=== PATIENT | female | born 1965 | race Caucasian/White ===

== ENCOUNTER 2022-12-15 05:14 | Emergency (ER) | payer OTHER, MEDICAID, SELFPAY ==
[2022-12-15] VITALS (24 sets, daily range): BP systolic 66–139; BP diastolic 48–88; PULSE 65–101; RESP 14–28; TEMP 36.6–36.9; O2SAT 98–100
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
[2022-12-15] MEDS: ONDANSETRON 4 MG/2 ML INJ IV (06:17)
[2022-12-15] MEDS: HYDROMORPHONE 0.5 MG INJ IV ×2 (06:17→10:18)
[2022-12-15 06:18] LABS: Prothrombin Time 11.8 SECONDS (10.1-12.7)
[2022-12-15 06:21] LABS: PTT Partial Thromboplastin Tim 29 SECONDS (26-36)
[2022-12-15 06:23] LABS: Alanine Aminotransferase 22 IU/L (<35); Albumin 4.2 g/dL (3.5-5.0); Albumin Globulin Ratio 1.4 (1.0-2.8); Alkaline Phosphatase 92 U/L (38-126); Aspartate Aminotransferase 34 IU/L (14-36); BUN Creatinine Ratio 15.8 (6-22); Bilirubin Total 0.6 mg/dL (0.2-1.3); Blood Urea Nitrogen 9 mg/dL (7-17); Calcium 8.7 mg/dL (8.4-10.2); Carbon Dioxide 28 mmol/L (22-32); Chloride 103 mmol/L (98-107); Estimated Glomerular Filt Rate > 60 mL/min (>60); Ethanol (ETOH) < 10 mg/dL; Glucose 126 mg/dL (70-100); HEMOLYSIS < 15 (0-50); Lipase 201 U/L (23-300); Potassium 3.4 mmol/L (3.4-5.1); Sodium 140 mmol/L (137-145); Total Protein 7.2 g/dL (6.3-8.2)
[2022-12-15 06:24] LABS: Lactate (Lactic Acid) 2.1 mmol/L (0.7-2.1)
[2022-12-15 06:32] LABS: Add Manual Diff / Slide Review NO; Basophils Absolute Auto 0 /uL (0-100); Basophils Percent Auto 0.4 % (0-2); Eosinophils Absolute Auto 100 /uL (0-450); Eosinophils Percent Auto 0.6 % (2-4); Hematocrit 37.8 % (36-46); Hemoglobin 12.6 g/dL (12.0-16.0); Lymphocytes Absolute Auto 2300 /uL (1100-4500); Lymphocytes Percent Auto 23.7 % (25-40); Mean Corpuscular HGB Conc 33.4 % (30-36); Mean Corpuscular Hemoglobin 28.7 PG (26-34); Mean Corpuscular Volume 85.8 fL (80-100); Monocytes Absolute Auto 600 /uL (0-900); Monocytes Percent Auto 5.6 % (3-14); Neutrophils Absolute Auto 6800 /uL (1500-7000); Neutrophils Percent Auto 69.7 % (50-75); Platelet Count 246 X10^3/uL (150-400); Red Cell Distribution Width 14.1 % (11.6-14.8); White Blood Cell Count 9.8 X10^3/uL (4.5-11.0)
[2022-12-15 06:56] LABS: UR Morphine/Opiate cutoff 300 Positive (Negative); Ur Creatinine Normal (Normal); Ur Specific Gravity Normal (Normal); Urine Amphetamines Negative (Negative); Urine Barbiturates Negative (Negative); Urine Benzodiazepines Negative (Negative); Urine Cocaine Negative (Negative); Urine MDMA Negative (Negative); Urine Methadone Negative (Negative); Urine Methamphetamines Negative (Negative); Urine Oxycodone Negative (Negative); Urine Phencyclidine Negative (Negative); Urine Tetrahydrocannabinol Negative (Negative); Urine Tricyclic Antidepressant Negative (Negative); Urine pH M (Normal)
[2022-12-15] MEDS: HYDROMORPHONE 1 MG INJ IV (06:57)
[2022-12-15] MEDS: SODIUM CHLORIDE 0.9% 1,000 ML 1000 ML IV (08:05)
[2022-12-15 08:06] LABS: Reflexed Lactate in 2 Hours Y
[2022-12-15] MEDS: TRANEXAMIC ACID 1,000 MG in SODIUM CHLORIDE 0.9% 100 ML 200 MG IV (08:20)
[2022-12-15] MEDS: LIDOCAINE 1% W/EPI 20 ML INJ (08:24)
[2022-12-15 08:33] LABS: Lactate 2HR (Lactic Acid Rflx) 1.6 mmol/L (0.7-2.1)
[2022-12-15 08:35] LABS: Add Manual Diff / Slide Review NO; Basophils Absolute Auto 100 /uL (0-100); Basophils Percent Auto 0.5 % (0-2); Eosinophils Absolute Auto 0 /uL (0-450); Eosinophils Percent Auto 0.1 % (2-4); Hematocrit 34.8 % (36-46); Hemoglobin 11.4 g/dL (12.0-16.0); Lymphocytes Absolute Auto 1200 /uL (1100-4500); Lymphocytes Percent Auto 11.1 % (25-40); Mean Corpuscular HGB Conc 32.8 % (30-36); Mean Corpuscular Hemoglobin 28.4 PG (26-34); Mean Corpuscular Volume 86.8 fL (80-100); Monocytes Absolute Auto 700 /uL (0-900); Monocytes Percent Auto 5.9 % (3-14); Neutrophils Absolute Auto 9100 /uL (1500-7000); Neutrophils Percent Auto 82.4 % (50-75); Platelet Count 254 X10^3/uL (150-400); Red Blood Cell Count 4.01 X10^6/uL (4.0-5.2); Red Cell Distribution Width 13.7 % (11.6-14.8)
--- NOTE | 2022-12-15 09:46 | PC.NURSE ---
inocente wraps applied to abdomen to create binder/pressure to hematoma site with rn applying manual pressure.
[2022-12-15 09:55] LABS: COVID19 -Nasal RAPID Negative (Negative)
--- NOTE | 2022-12-15 10:21 | PC.NURSE ---
blood transfusion transferred to [facility] rns to complete
== END 2022-12-15 10:23 | disposition short-term general hospital (02) ==
PROVIDERS: Emergency Medicine; Emergency Provider Emergency Medicine
DX: T79.4XXA Traumatic shock, initial encounter (principal); R23.3 Spontaneous ecchymoses; I95.9 Hypotension, unspecified; S30.1XXA Contusion of abdominal wall, initial encounter; V89.2XXA Person injured in unspecified motor-vehicle accident, traffic, initial encounter
CPT/HCPCS: 36415; 36430; 70450; 71260; 72125; 74177; 80053; 80305; 80320; 82962; 83605; 83690; 85025; 85610; 85730; 86850; 86900; 86901; 87635; 93005; 96365; 96366; 96375; 96376; 99285; 99291; C9803; P9016; G0390; J1170; J2405; Q9967

== ENCOUNTER 2023-11-20 13:10 | Observation (INO) | payer OTHER, MEDICAID, SELFPAY ==
[2023-11-20] VITALS (11 sets, daily range): BP systolic 98–141; BP diastolic 60–84; PULSE 65–82; RESP 16–24; TEMP 36.2–36.7; O2SAT 96–100; BMI 29.2; BMI 26.0
--- NOTE | 2023-11-20 13:17 | DI.RAD.S_ITS ---
PROCEDURE: XR CHEST 1V INDICATIONS: chest pain TECHNIQUE: One view of the chest was acquired. COMPARISON: [facility], CT, CT CHEST ABD PEL W CON, 12/15/2022, 5:51. FINDINGS: Surgical changes and devices: None. Lungs and pleura: Lungs are clear. No pleural effusions or pneumothorax. Mediastinum: Mediastinal contours appear normal. Heart size is normal. Bones and chest wall: No suspicious bony lesions. Overlying soft tissues appear unremarkable. IMPRESSION: No acute pulmonary process. Dictated by: Sienna Rascon M.D. on 11/20/2023 at 15:38 Approved by: Sienna Rascon M.D. on 11/20/2023 at 15:38
[2023-11-20] MEDS: ASPIRIN 81 MG CHEW TAB 324 MG PO (13:25)
[2023-11-20 13:38] LABS: Add Manual Diff / Slide Review NO; Basophils Absolute Auto 100 /uL (0-100); Basophils Percent Auto 1.1 % (0-2); Eosinophils Absolute Auto 100 /uL (0-450); Eosinophils Percent Auto 1.2 % (2-4); Hematocrit 38.9 % (36-46); Hemoglobin 12.9 g/dL (12.0-16.0); Lymphocytes Absolute Auto 2200 /uL (1100-4500); Lymphocytes Percent Auto 41.1 % (25-40); Mean Corpuscular HGB Conc 33.2 % (30-36); Mean Corpuscular Hemoglobin 28.9 PG (26-34); Monocytes Absolute Auto 400 /uL (0-900); Monocytes Percent Auto 6.9 % (3-14); Neutrophils Absolute Auto 2700 /uL (1500-7000); Neutrophils Percent Auto 49.7 % (50-75); Platelet Count 262 X10^3/uL (150-400); Red Blood Cell Count 4.47 X10^6/uL (4.0-5.2); Red Cell Distribution Width 13.6 % (11.6-14.8); White Blood Cell Count 5.4 X10^3/uL (4.5-11.0)
[2023-11-20 13:42] LABS: Prothrombin Time 11.2 SECONDS (9.4-12.5)
[2023-11-20 13:45] LABS: PTT Partial Thromboplastin Tim 38 SECONDS (25.1-36.5)
[2023-11-20 13:46] LABS: Alanine Aminotransferase 16 IU/L (<35); Albumin 4.4 g/dL (3.5-5.0); Albumin Globulin Ratio 1.4 (1.0-2.8); Alkaline Phosphatase 79 U/L (38-126); Aspartate Aminotransferase 27 IU/L (14-36); Bilirubin Total 0.8 mg/dL (0.2-1.3); Blood Urea Nitrogen 14 mg/dL (7-17); Calcium 9.4 mg/dL (8.4-10.2); Carbon Dioxide 28 mmol/L (22-32); Chloride 106 mmol/L (98-107); Creatine Kinase 62 U/L (30-135); Estimated Glomerular Filt Rate > 60 mL/min (>60); Globulin 3.1 g/dL (1.7-4.1); Glucose 88 mg/dL (70-100); HEMOLYSIS < 15 (0-50); Lipase 222 U/L (23-300); Magnesium 2.2 mg/dL (1.6-2.3); Potassium 3.2 mmol/L (3.4-5.1); Sodium 142 mmol/L (137-145); Total Protein 7.5 g/dL (6.3-8.2)
--- NOTE | 2023-11-20 13:47 | ED_ITS ---
HPI - Chest Pain General Chief Complaint: Chest Pain Stated Complaint: pain under L breast into jaw/ t-0 Time Seen by Provider: 11/20/23 13:35 History of Present Illness HPI narrative: Patient here for non reproducible chest pain events starting yesterday. Yesterday had a 1 or 2 minute episode of left chest pain that radiated to the left neck.. Today at 1:00 p.m. had 2 more episodes. With these, no shortness of breath nausea sweating or syncope. Is a sharp pain pressure pain. No history of hypertension hypercholesterolemia. History of father though with coronary disease. Patient does not smoke. Never had cardiac stress test. No history of blood clots in legs or lungs before. No history of heart attack strokes or diabetes. Patient is pain-free at this time Related Data Home Medications Medication Instructions Recorded Confirmed bupropion HCl 150 mg tablet,12 hr 150 mg PO BID 11/20/23 11/20/23 sustained-release (Wellbutrin SR) Allergies Allergy/AdvReac Type Severity Reaction Status Date / Time No Known Drug Allergies Allergy Verified 11/20/23 13:17 Review of Systems Review of Systems Narrative: GENERAL: negative chills, fatigue, malaise, fever, sweats. HEENT: negative sinus pain, ear pain, sore throat RESPIRATORY: negative dyspnea, cough CARDIOVASCULAR: Positive chest pain, negative palpitations GASTROINTESTINAL: negative nausea, vomiting, abdominal pain : negative dysuria, frequency, hematuria MUSCULOSKELETAL: negative muscle or bony pain SKIN: negative rash, skin lesions NEUROLOGIC: negative weakness, numbness ROS Unobtainable: All systems reviewed & are unremarkable except as noted in HPI and below Patient History Social History household members: significant other Smoking Status: Never smoker alcohol intake: current Smoking Status: Never smoker alcohol intake frequency: 0-2 drinks per day Substance Use Type: does not use Exam Narrative Exam Narrative: GENERAL: in no distress, not toxic not dyspneic HEAD: Normocephalic. EYES: Pupils equal round ENT: Mucous membranes moist. NECK: Trachea midline. CARDIOVASCULAR: Regular rate and rhythm, strong heart tones strong carotid radial pulses. Chest wall nontender RESPIRATORY: Clear to auscultation. Breath sounds equal bilaterally. No wheezes, rales, or rhonchi. GASTROINTESTINAL: Abdomen soft, non-tender EXTREMITIES: No gross deformities. BACK: No flank tenderness. NEURO: AOx4. SKIN: Warm and dry PSYCH: Not anxious, is cooperative Initial Vital Signs Initial Vital Signs: Vital Signs Temperature 98.1 F 11/20/23 13:13 Pulse Rate 77 11/20/23 13:13 Respiratory Rate 18 11/20/23 13:13 Blood Pressure 136/74 11/20/23 13:13 Pulse Oximetry 98 11/20/23 13:13 Oxygen Delivery Method Room Air 11/20/23 13:13 Course Orders Ordered: Discontinued Medications Acetaminophen (Acetaminophen 325 Mg Tablet) 650 mg PO Q6H PRN PRN Reason: Fever/Mild Pain (1-3) Aspirin (Aspirin 81 Mg Chew Tab) 324 mg PO NOW ONE Stop: 11/20/23 13:18 Last Admin: 11/20/23 13:25 Dose: 324 mg Documented By: LINK Aspirin (Aspirin Ec 81 Mg Tablet) 81 mg PO DAILY [facility], [facility]1983 Last Admin: 11/21/23 08:09 Dose: 81 mg Documented By: MICAH Al Hydrox/Mg Hydrox/Simethicone 20 ml/ Lidocaine HCl 15 ml 0 ml PO Q8H PRN PRN Reason: GI upset/chest pain Melatonin (Melatonin 3 Mg Tablet) 6 mg PO BEDTIME PRN PRN Reason: Insomnia Naloxone HCl (Naloxone 0.4 Mg/Ml Vial) 0.2 mg IV Q2MIN PRN PRN Reason: Opiate Reversal Ondansetron HCl (Ondansetron 4 Mg/2 Ml Inj) 4 mg IV Q4HR PRN PRN Reason: Nausea And Vomiting Pantoprazole Sodium (Pantoprazole Dr 20 Mg Tablet) 40 mg PO 0700 [facility] Last Admin: 11/21/23 08:09 Dose: 40 mg Documented By: MICAH Potassium Chloride (Potassium Chloride 20 Meq Tab) 40 meq PO NOW ONE Stop: 11/20/23 16:43 Last Admin: 11/20/23 17:40 Dose: 40 meq Documented By: MICAH Vital Signs Vital signs: Vital Signs - 8 hr 11/20/23 13:13 11/20/23 13:24 11/20/23 13:24 Temperature 98.1 F Pulse Rate 77 74 Respiratory Rate 18 20 Blood Pressure 136/74 132/83 Pulse Oximetry 98 Oxygen Delivery Method Room Air 11/20/23 13:30 11/20/23 13:30 11/20/23 14:00 Temperature Pulse Rate 82 72 Respiratory Rate 17 22 Blood Pressure 134/84 Pulse Oximetry 99 98 Oxygen Delivery Method 11/20/23 14:00 11/20/23 14:30 11/20/23 14:30 Temperature Pulse Rate 70 Respiratory Rate 20 Blood Pressure 113/70 98/60 Pulse Oximetry 97 Oxygen Delivery Method 11/20/23 15:07 11/20/23 15:07 Temperature Pulse Rate 77 Respiratory Rate 24 Blood Pressure 116/66 Pulse Oximetry 98 Oxygen Delivery Method MDM - Chest Pain Lab Data 11/21/23 04:31 11/21/23 04:31 Labs: Lab Results 11/20/23 11/20/23 Range/Units 13:26 15:44 WBC 5.4 (4.5-11.0) X10^3/uL RBC 4.47 (4.0-5.2) X10^6/uL Hgb 12.9 (12.0-16.0) g/dL Hct 38.9 (36-46) % MCV 87.0 (80-100) fL MCH 28.9 (26-34) PG MCHC 33.2 (30-36) % RDW 13.6 (11.6-14.8) % Plt Count 262 (150-400) X10^3/uL Neut % (Auto) 49.7 L (50-75) % Lymph % (Auto) 41.1 H (25-40) % Starke % (Auto) 6.9 (3-14) % Eos % (Auto) 1.2 L (2-4) % Baso % (Auto) 1.1 (0-2) % Neut # (Auto) 2700 (0711-4807) /uL Lymph # (Auto) 2200 (4535-2914) /uL Starke # (Auto) 400 (0-900) /uL Eos # (Auto) 100 (0-450) /uL Baso # (Auto) 100 (0-100) /uL PT 11.2 (9.4-12.5) SECONDS INR 1.0 (0.9-1.3) APTT 38 H (25.1-36.5) SECONDS Sodium 142 (137-145) mmol/L Potassium 3.2 L (3.4-5.1) mmol/L Chloride 106 (98-107) mmol/L Carbon Dioxide 28 (22-32) mmol/L BUN 14 (7-17) mg/dL Creatinine 0.61 (0.52-1.04) mg/dL Estimated GFR > 60 (>60) mL/min BUN/Creatinine Ratio 23.0 H (6-22) Glucose 88 (70-100) mg/dL Hemoglobin A1c 5.3 (4.0-6.0) % Calcium 9.4 (8.4-10.2) mg/dL Magnesium 2.2 (1.6-2.3) mg/dL Total Bilirubin 0.8 (0.2-1.3) mg/dL AST 27 (14-36) IU/L ALT 16 (<35) IU/L Alkaline Phosphatase 79 (38-126) U/L Total Creatine Kinase 62 56 (30-135) U/L Troponin I < 0.012 < 0.012 (0.01-0.034) ng/mL Total Protein 7.5 (6.3-8.2) g/dL Albumin 4.4 (3.5-5.0) g/dL Globulin 3.1 (1.7-4.1) g/dL Albumin/Globulin Ratio 1.4 (1.0-2.8) Triglycerides 91 (35-150) mg/dL Cholesterol 199 (140-199) mg/dL LDL Cholesterol, Calc 117 H (<100) mg/dL HDL Cholesterol 64 H (40-60) mg/dL Lipase 222 (23-300) U/L TSH 1.91 (0.47-4.68) uIU/mL Imaging Data Chest x-ray: Radiologist's Impression: [address] [address] XRay Report Signed Patient: Lizz Parra MR#: [id number] : 1965 Acct:[id number] Age/Sex: 58 / F Date of Service: 11/20/23 Loc: ED Accession Number: [id number] Procedure: XR chest 1V Ordering Provider: Jarret Limon MD PROCEDURE: XR CHEST 1V INDICATIONS: chest pain TECHNIQUE: One view of the chest was acquired. COMPARISON: [facility], CT, CT CHEST ABD PEL W CON, 12/15/2022, 5:51. FINDINGS: Surgical changes and devices: None. Lungs and pleura: Lungs are clear. No pleural effusions or pneumothorax. Mediastinum: Mediastinal contours appear normal. Heart size is normal. Bones and chest wall: No suspicious bony lesions. Overlying soft tissues appear unremarkable. IMPRESSION: No acute pulmonary process. Dictated by: Sienna Rascon M.D. on 11/20/2023 at 15:38 Approved by: Sienna Rascon M.D. on 11/20/2023 at 15:38 [facility] Narrative Medical decision making narrative: Patient here for non reproducible chest pain events starting yesterday. Yesterday had a 1 or 2 minute episode of left chest pain that radiated to the left neck.. Today at 1:00 p.m. had 2 more episodes. With these, no shortness of breath nausea sweating or syncope. Is a sharp pain pressure pain. No history of hypertension hypercholesterolemia. History of father though with coronary disease. Patient does not smoke. Never had cardiac stress test. No history of blood clots in legs or lungs before. No history of heart attack strokes or diabetes. Patient is pain-free at this time After history and exam CBC CMP troponin x2 EKG chest x-ray aspirin [facility] CC: Chest pain Complicating co-morbidities: None Data collected from: Patient Medical records reviewed: No previous visits here for this complaint Differential considered: Includes but not limited to STEMI non-STEMI angina pleurisy costochondritis pulmonary embolism Exam documented above, pertinent findings include: Nontender chest Lab Test results independently reviewed as above. Pertinent findings: WBC 5.4 hemoglobin 12.9 INR 1.0 sodium 142 potassium 3.2 GFR greater than 60 Troponin less than 0.012 x2 Independently reviewed EKG normal sinus rhythm normal EKG rate [address] elevation or depression Imaging studies independently reviewed: Chest x-ray no acute finding Consultations: 4:30 p.m.. Spoke with hospitalist, Dr. Campbell, he will see patient for admission Treatments: Aspirin Re-evaluations: Patient remains chest pain-free. Exam and laboratory studies are reassuring. Patient agrees for admission. Does not have primary care to follow up with. Discussion: Appropriate for admission for balance or workup for chest pain including stress test echocardiogram. Exam and laboratory studies reassuring during workup in the department. Diagnosis: Chest pain Discharge Plan Departure Patient Disposition: Admitted as Observation Clinical Impression: Chest pain Qualifiers: Chest pain type: unspecified Qualified Code(s): R07.9 - Chest pain, unspecified Admit Date/Time: 11/20/23 16:34 Admit Provider: Shravan Campbell
[2023-11-20 13:58] LABS: Troponin I < 0.012 ng/mL (0.01-0.034)
[2023-11-20 15:58] LABS: Creatine Kinase 56 U/L (30-135)
[2023-11-20 16:11] LABS: Troponin I < 0.012 ng/mL (0.01-0.034)
--- NOTE | 2023-11-20 16:43 | DI.ECHO.S_ITS ---
[facility]---------+ [facility] +---------+ : : [address] [address] : : : : [id number] : : : : Phone: [phone]+ Echocardiogram Report + + :Name: NAHEED WELLS Study Date: 11/20/2023 Height: 59 in : :[facility] ReadingLocation: Weight: 145 lb: : Gender: Female BSA: 1.6 m2 : :: 1965 Age: 58 yrs : :Reason For Study: CHEST PAIN : :Ordering Physician: MURIEL, : :TORRES Blancas Performed By: Johnathan Hewitt : :Referring: TORRES LLAMAS : + + Interpretation Summary 1) Normal left ventricular thickness, size, wall motion, and systolic function (EF 55-60%). 2) Normal right ventricular size and function. 3) No significant valvular abnormalities. 4) No prior Echo available for comparison. Procedure: A two-dimensional transthoracic echocardiogram with color flow and Doppler was performed. The study quality was technically adequate. There is no prior echocardiogram noted for this patient. The patient was in normal sinus rhythm during the exam. The heart rate ranged between 62-69 bpm during the study. Left Ventricle: The left ventricle is normal in size and wall thickness. The ejection fraction is estimated to be 55-60%. Left ventricular systolic function appears normal without focal wall motion abnormalities. Diastolic parameters suggest probable normal left ventricular diastolic function and normal filling pressures. Right Ventricle: The right ventricle is normal in size and function. Atria: The left atrial size is normal. Right atrial size is normal. Mitral Valve: The mitral valve is normal in structure and function. There is no mitral valve stenosis. There is mild mitral regurgitation. The mitral regurgitant jet is eccentrically directed. Aortic Valve: The aortic valve is trileaflet. There is no aortic valve stenosis. No aortic regurgitation is present. Tricuspid Valve: The tricuspid valve is normal in structure and function. There is no tricuspid stenosis. No tricuspid regurgitation. Pulmonary artery pressures cannot be estimated because of the lack of a measurable TR jet velocity. Pulmonic Valve: The pulmonic valve is not well visualized. There is no pulmonic valvular stenosis. There is no pulmonic valvular regurgitation. Great Vessels: The aortic root is normal size. The ascending aorta could not be visualized. The IVC is of normal diameter and collapses greater than 50% with a sniff. This suggests a low right atrial pressure of 3 mm Hg. Pericardium/ Pleura There is no pericardial effusion. There is no pleural effusion. MMode/2D Measurements & Calculations LVIDd: 3.9 cm LVOT diam: 2.0 cm LVIDs: 2.8 cm Ao root diam: 3.0 cm FS: 28.8 % Ao Arch Diam (Prox Trans): 2.3 cm IVSd: 0.93 cm LVPWd: 1.0 cm LV maria. diameter/BSA (cm/m^2): 2.4 LV sys. diameter/BSA (cm/m^2): 1.7 LA A2 area: 14.6 cm2 RA long axis: 3.9 cm LA A4 area: 13.7 cm2 RA area: 13.1 cm2 LA length (vol): 4.5 cm RA vol: 37.0 ml LA vol: 37.7 ml RA : 23.0 ml/m2 LA vol index: 23.4 ml/m2 IVC diam: 1.8 cm RVD1 (basal): 4.1 cm RVD2 (mid): 2.9 cm TAPSE: 2.2 cm Doppler Measurements & Calculations Ao V2 max: 124.8 cm/sec LVOT Max Bernard: 107.9 cm/sec Ao V2 mean: 88.7 cm/sec LV V1 max P.7 mmHg Ao max P.2 mmHg LV V1 VTI: 25.1 cm Ao mean P.5 mmHg LITA(I,D): 2.5 cm2 Ao V2 VTI: 29.7 cm LITA(V,D): 2.6 cm2 sev ratio: 0.84 LITA indexed to BSA (cm^2/m^2): 1.6 MV E max bernard: 59.3 cm/sec PA V2 max: 72.7 cm/sec MV A max bernard: 63.0 cm/sec PA V2 mean: 47.9 cm/sec MV E/A: 0.94 PA mean P.0 mmHg Med Peak E' Bernard: 6.7 cm/sec PA pr(Accel): 24.2 mmHg E/E' med: 8.9 Lat Peak E' Bernard: 11.2 cm/sec E/E' lat: 5.3 E/e' average: 7.1 MV dec time: 0.18 sec SV(LVOT): 75.5 ml Reading Physician:08:49 AM
--- NOTE | 2023-11-20 16:49 | P.HP_ITS ---
History of Present Illness History of Present Illness Date Patient Seen: 11/20/23 Chief complaint: pain under L breast into jaw/ t-0 Narrative: Lizz Parra is a 58yo F with no significant past medical history who presents with chest pain. She notes it first occurred last week when she was working on her computer, she felt a pressure in her chest which radiated to her jaw and she was going to call 911 because it scared her, but then it went away so she didn't. Then today while driving she experienced the same pain under her left breast radiated to her left jaw. She pulled over the car and it lasted for about a minute then went away. Then it happened a third time so she drove herself to the ED. In the ED patient had a normal EKG and normal trops x2. She isn't sure if it is stress-related or heartburn. Has never had a stress test before. She denies dyaphoresis, NV, dizziness, SOB, abd pain or diarrhea. [facility] Social History household members: significant other Smoking Status: Never smoker alcohol intake: current Meds Home Medications and Allergies Home Medications Medication Instructions Recorded Confirmed Type bupropion HCl 150 mg tablet,12 hr 150 mg PO BID 11/20/23 11/20/23 History sustained-release (Wellbutrin SR) Allergies Allergy/AdvReac Type Severity Reaction Status Date / Time No Known Drug Allergies Allergy Verified 11/20/23 13:17 Review of Systems Review of Systems Narrative: All other systems reviewed with the patient and are negative unless otherwise stated. Exam Vital Signs (past 8 hours): - 11/20/23 13:13 11/20/23 13:24 11/20/23 13:24 Temperature 98.1 F Pulse Rate 77 74 Respiratory Rate 18 20 Blood Pressure 136/74 132/83 Pulse Oximetry 98 Oxygen Delivery Method Room Air 11/20/23 13:30 11/20/23 13:30 11/20/23 14:00 Temperature Pulse Rate 82 72 Respiratory Rate 17 22 Blood Pressure 134/84 Pulse Oximetry 99 98 Oxygen Delivery Method 11/20/23 14:00 11/20/23 14:30 11/20/23 14:30 Temperature Pulse Rate 70 Respiratory Rate 20 Blood Pressure 113/70 98/60 Pulse Oximetry 97 Oxygen Delivery Method 11/20/23 15:07 11/20/23 15:07 11/20/23 15:30 Temperature Pulse Rate 77 67 Respiratory Rate 24 18 Blood Pressure 116/66 Pulse Oximetry 98 98 Oxygen Delivery Method 11/20/23 15:30 11/20/23 16:00 11/20/23 16:00 Temperature Pulse Rate 65 Respiratory Rate 22 Blood Pressure 110/70 107/65 Pulse Oximetry 96 Oxygen Delivery Method 11/20/23 16:30 11/20/23 16:30 Temperature Pulse Rate 65 Respiratory Rate 19 Blood Pressure 103/69 Pulse Oximetry 97 Oxygen Delivery Method Oxygen Delivery Method Room Air Narrative Exam Narrative: GEN: no acute distress HEENT: moist mucous membranes, PERRL NECK: trachea midline, no JVD CV: regular rate and rhythm, no murmurs PULM: clear bilaterally ABD: soft, nontender, nondistended, no organomegaly EXT: warm and well perfused with no edema NEURO: awake, alert, oriented, no focal deficits Objective Labs 11/20/23 13:26 11/20/23 13:26 Labs: Laboratory Results - last 24 hr 11/20/23 11/20/23 13:26 15:44 WBC 5.4 RBC 4.47 Hgb 12.9 Hct 38.9 MCV 87.0 MCH 28.9 MCHC 33.2 RDW 13.6 Plt Count 262 Neut % (Auto) 49.7 L Lymph % (Auto) 41.1 H [place] % (Auto) 6.9 Eos % (Auto) 1.2 L Baso % (Auto) 1.1 Neut # (Auto) 2700 Lymph # (Auto) 2200 [place] # (Auto) 400 Eos # (Auto) 100 Baso # (Auto) 100 PT 11.2 INR 1.0 APTT 38 H Sodium 142 Potassium 3.2 L Chloride 106 Carbon Dioxide 28 BUN 14 Creatinine 0.61 Estimated GFR > 60 BUN/Creatinine Ratio 23.0 H Glucose 88 Calcium 9.4 Magnesium 2.2 Total Bilirubin 0.8 AST 27 ALT 16 Alkaline Phosphatase 79 Total Creatine Kinase 62 56 Troponin I < 0.012 < 0.012 Total Protein 7.5 Albumin 4.4 Globulin 3.1 Albumin/Globulin Ratio 1.4 Lipase 222 Assessment & Plan Assessment & Plan narrative: # chest pain -suspicious as it occured on left side and radiated to jaw and L arm. Also her father had cardiac disease. -heart score 3-4 -start daily aspirin, loaded in ED -treadmill stress test ordered -echo ordered -NPO midnight -no caffeine -tele -check lipids and A1c # hypokalemia -K 3.2, mag good -replete PRN Code status is full code. DVT prophylaxis with SCD. Proxy is life partner Peter. I have reviewed home meds and used all available resources to reconcile the home meds. Case discussed with ED physician/APC and patient will be admitted to the hospitalist service for further workup and management. This patient will be admitted as observation and will require less than 2 midnights of hospital time to treat chest pain rule out.
[2023-11-20 17:07] LABS: Cholesterol 199 mg/dL (140-199); HDL Cholesterol 64 mg/dL (40-60); LDL Cholesterol Calculated 117 mg/dL (<100); Triglycerides 91 mg/dL (35-150)
[2023-11-20 17:08] LABS: Hemoglobin A1C% w Est Avg Glu 5.3 % (4.0-6.0)
[2023-11-20 17:39] LABS: TSH w/ Reflex to FT4 1.91 uIU/mL (0.47-4.68)
[2023-11-20] MEDS: POTASSIUM CHLORIDE 20 MEQ TAB 40 MEQ PO (17:40)
[2023-11-21 04:45] VITALS: BP 102/72; PULSE 62; RESP 16; TEMP 35.8; O2SAT 100
[2023-11-21 05:16] LABS: Add Manual Diff / Slide Review NO; Basophils Absolute Auto 100 /uL (0-100); Basophils Percent Auto 1.2 % (0-2); Eosinophils Absolute Auto 100 /uL (0-450); Eosinophils Percent Auto 2.5 % (2-4); Hematocrit 36.6 % (36-46); Hemoglobin 12.3 g/dL (12.0-16.0); Lymphocytes Absolute Auto 2400 /uL (1100-4500); Lymphocytes Percent Auto 48.8 % (25-40); Mean Corpuscular HGB Conc 33.6 % (30-36); Mean Corpuscular Hemoglobin 29.1 PG (26-34); Mean Corpuscular Volume 86.6 fL (80-100); Monocytes Absolute Auto 300 /uL (0-900); Monocytes Percent Auto 6.5 % (3-14); Neutrophils Absolute Auto 2000 /uL (1500-7000); Platelet Count 244 X10^3/uL (150-400); Red Blood Cell Count 4.23 X10^6/uL (4.0-5.2); Red Cell Distribution Width 13.5 % (11.6-14.8)
[2023-11-21 05:37] LABS: Troponin I < 0.012 ng/mL (0.01-0.034)
[2023-11-21 05:39] LABS: BUN Creatinine Ratio 23.7 (6-22); Blood Urea Nitrogen 14 mg/dL (7-17); Calcium 9.3 mg/dL (8.4-10.2); Carbon Dioxide 25 mmol/L (22-32); Chloride 109 mmol/L (98-107); Estimated Glomerular Filt Rate > 60 mL/min (>60); Glucose 90 mg/dL (70-100); HEMOLYSIS < 15 (0-50); Potassium 4.7 mmol/L (3.4-5.1); Sodium 140 mmol/L (137-145)
[2023-11-21 08:00] VITALS: BP 95/59; PULSE 56; RESP 16; TEMP 36.3; O2SAT 100
[2023-11-21] MEDS: PANTOPRAZOLE DR 20 MG TABLET 40 MG PO (08:09)
[2023-11-21] MEDS: ASPIRIN EC 81 MG TABLET PO (08:09)
--- NOTE | 2023-11-21 10:37 | CM.DANOTE ---
Initial DCP Assessment Note Pt is a 58 yo female, resident of [place], arrives with transient chest pain, admitted for additional work up. PCP: None currently Payer: Gadiel [place] Reviewed chart, pt discussed in multidisciplinary rounds this morning. Patient scheduled for stress test then likely discharge home after. Met w/patient to introduce self and role. Patient moved to [place] from [place], with her SO, a few days ago. Patient is indp in all aspects, drives. Patient asks what providers in the area would accept Gadiel [place]. Patient had already called providers in [place] and [place] and did not have success. Reviewed Gadiel's website and found that provider groups: [facility] in [place] and [facility] in [place] accept Gadiel, provided patient with contact information for both. Patient appreciative. No barriers identified at this time to patient's safe discharge home w/family to assist; close outpatient f/u recommended. CM team will plan to follow closely in case any DC needs or concerns arise. HERMILA Rondon Discharge Planning/Care Management CM Discharge Assessment Start: 11/21/23 10:36 Freq: Status: Active Protocol: Document 11/21/23 10:36 BRII (Rec: 11/21/23 10:37 BRII [id number]) Discharge Planning Assessment Assigned Sliver Cutter HERMILA Castaneda DPOA/Assigned Designee Name ADDISON Lee Contact Information [phone] Advance Directives? No History Provided By Patient,Medical Record Prior Living Arrangements House Household Members significant other Type of transporation used prior to Drives own vehicle admit Independent with ADL's Yes Is patient alert and oriented? Yes Barriers to Discharge No Discharge Plan Home Transportation Arrangement SO Referrals Initiated None needed
[2023-11-21 13:00] VITALS: BP 104/62; PULSE 75; RESP 16; TEMP 36.3; O2SAT 96
--- NOTE | 2023-11-21 13:54 | PC.NURSE ---
Day shift: Pt's cardiac tests all came back without concern. PIV and tele d/c'ed. Discharge orders gone over with patient, all questions answered/patient stated understanding. All belongings with patient. SILAS Ruelas escorted patient via wheelchair to exit where patient's SO will drive her home.
--- NOTE | 2023-11-21 14:23 | P.DS_ITS ---
History of Present Illness History of Present Illness Chief complaint: pain under L breast into jaw/ t-0 Narrative: Lizz Parra is a 58yo F with no significant past medical history who presents with chest pain. She notes it first occurred last week when she was working on her computer, she felt a pressure in her chest which radiated to her jaw and she was going to call 911 because it scared her, but then it went away so she didn't. Then today while driving she experienced the same pain under her left breast radiated to her left jaw. She pulled over the car and it lasted for about a minute then went away. Then it happened a third time so she drove herself to the ED. In the ED patient had a normal EKG and normal trops x2. She isn't sure if it is stress-related or heartburn. Has never had a stress test before. She denies dyaphoresis, NV, dizziness, SOB, abd pain or diarrhea. Discharge Providers Provider Date of admission: 11/20/23 16:34 Discharge Date: 11/21/23 Discharge provider: Shravan Campbell DO Summary Hospital Course Discharge Diagnosis: # chest pain -suspicious as it occured on left side and radiated to jaw and L arm. Also her father had cardiac disease. -heart score 3-4 -trops neg x3 -start daily aspirin, loaded in ED -treadmill stress test was low risk -echo with EF 55-60%, normal wall motion, and no valvular abnormalities -tele -LDL 117 and A1c 5.3% # hypokalemia -K 3.2, mag good -replete PRN Hospital Course: Admitted for chest pain. Trops, EKG, echo and exercise non-nuclear stress test were reassuring. Patient needs new PCP so she was given list of providers to schedule with. Discharged home and had no further CP while admitted. Exam Vital Signs (past 8 hours): - 11/21/23 08:00 11/21/23 13:00 Temperature 97.4 F L 97.3 F L Pulse Rate 56 L 75 Respiratory Rate 16 16 Blood Pressure 95/59 L 104/62 Pulse Oximetry 100 96 Oxygen Flow Rate 0 Oxygen Delivery Method Room Air Oxygen Flow Rate 0 Narrative Exam Narrative: GEN: no acute distress HEENT: moist mucous membranes, PERRL NECK: trachea midline, no JVD CV: regular rate and rhythm, no murmurs PULM: clear bilaterally ABD: soft, nontender, nondistended, no organomegaly EXT: warm and well perfused with no edema NEURO: awake, alert, oriented, no focal deficits Objective Labs 11/21/23 04:31 11/21/23 04:31 Labs: Laboratory Results - last 24 hr 11/20/23 11/20/23 11/21/23 13:26 15:44 04:31 WBC 5.0 RBC 4.23 Hgb 12.3 Hct 36.6 MCV 86.6 MCH 29.1 MCHC 33.6 RDW 13.5 Plt Count 244 Neut % (Auto) 41.0 L Lymph % (Auto) 48.[address] [place] % (Auto) 6.5 Eos % (Auto) 2.5 Baso % (Auto) 1.2 Neut # (Auto) 2000 Lymph # (Auto) [address] [place] # (Auto) 300 Eos # (Auto) 100 Baso # (Auto) 100 Sodium 140 Potassium 4.7 D Chloride 109 H Carbon Dioxide 25 BUN 14 Creatinine 0.59 Estimated GFR > 60 BUN/Creatinine Ratio 23.7 H Glucose 90 Hemoglobin A1c 5.3 Calcium 9.3 Total Creatine Kinase 56 Troponin I < 0.012 < 0.012 Triglycerides 91 Cholesterol 199 LDL Cholesterol, Calc 117 H HDL Cholesterol 64 H TSH 1.91 PFSH Social History household members: significant other Smoking Status: Never smoker alcohol intake: current Discharge Plan Discharge Plan Patient Disposition: Home Provider Discharge Comment: All of your cardiac testing was reassuring including normal heart enzymes, normal EKG, normal echo and normal stress test. Your chest pain is likely non-cardiac. Discharge orders & Medications Prescriptions: Continued bupropion HCl [Wellbutrin SR] 150 mg Tablet Sustained-Release 12 Hr 150 mg PO BID Follow up/Referrals: Miscellaneous,DoctorMD [Non-Staff] - Visit Report/Discharge Packet Instructions: DI for Gastroesophageal Reflux Disease (GERD) Stand Alone Forms: Patient Portal/API, Stroke Signs & Symptoms Discharge Data Attending Provider: Shravan Campbell Admit Date/Time: 11/20/23 16:34 Quality VTE Deep Vein Thrombosis/Pulmonary Embolism Present on Admission: No
--- NOTE | 2023-11-21 15:01 | DI.NM.S_ITS ---
DATE OF SERVICE: 11/21/2023 STUDY: Exercise stress test INDICATIONS: Chest pain. CARDIAC STRESS: Patient underwent exercise stress test under the supervision of attending staff. The patient walked on [place] protocol for 9 minutes and 15 seconds, achieved maximum heart rate of 149, which was 91% of target heart rate. Normal blood pressure response. Resting blood pressure 110/70 and peak blood pressure 142/70 mmHg. SRINATH -28%. 10.1 METs of workload. Baseline rhythm, sinus. During stress, no convincing ischemic EKG changes seen. No significant arrhythmias. No chest pain. Normal recovery. The patient had some shortness of breath. CONCLUSION: 1. Exercise stress test is negative for inducible ischemia. 2. Normal blood pressure and heart rate response. 3. No significant arrhythmias. 4. No anginal symptoms with normal recovery. Good exercise capacity. Overall, low-risk exercise stress test. Lizz Parra - CAMILO/prabhu/sonya doc#: [id number]/job#: [id number] dd: 11/21/2023 12:47:00 dt: 11/21/2023 14:52:00 DICTATING /COPIES TO: Amauri Heredia MD COPIES MNE: BANDAR;
== END 2023-11-21 13:58 | disposition home or self-care (01) ==
LOC: ED 15:48 → AC 16:34
PROVIDERS: Admitting Provider Student in an Organized Health Care Education/Training Program; Emergency Provider Emergency Medicine; Referring Provider Emergency Medicine; Visit Provider Student in an Organized Health Care Education/Training Program
DX: R07.9 Chest pain, unspecified (principal); E87.6 Hypokalemia
CPT/HCPCS: 36415; 71045; 80048; 80053; 80061; 82550; 83036; 83690; 83735; 84443; 84484; 85025; 85610; 85730; 93005; 93010; 93017; 93306; 99284; G0378

== ENCOUNTER → 2024-01-13 09:49 | Outpatient (CLI) | payer OTHER, MEDICAID, SELFPAY ==
[2023-11-20 16:57] VITALS: BMI 26.0
--- NOTE | 2024-01-13 10:56 | DI.CT.S_ITS ---
PROCEDURE: CT ABDOMEN W CON INDICATIONS: Elevated lipase TECHNIQUE: After the administration of intravenous contrast, 5 mm thick sections acquired from the diaphragms to the iliac crests. 5 mm thick coronal and sagittal reformats were acquired. For radiation dose reduction, the following was used: automated exposure control, adjustment of mA and/or kV according to patient size. COMPARISON: None. FINDINGS: Image quality: Diagnostic. Lower Chest: No significant findings. ABDOMEN: Liver: No solid mass. Gallbladder: Absent. Biliary ducts: No biliary dilation. Pancreas: No ductal dilation. No peripancreatic fat stranding. Spleen: Size is within normal limits. Adrenal Glands: No adrenal nodules. Kidneys and Ureters: No hydronephrosis. No solid mass. No complex renal cystic lesion which requires follow up. Stomach and Bowel: Normal colonic caliber, without significant wall thickening. Peritoneum: No abnormal intraperitoneal fluid. No free air. Ventral Wall: No hernia. Abdominal Nodes: No retroperitoneal or mesenteric adenopathy by size criteria. Vessels: Aorta and inferior vena cava are normal in size. Bones: No aggressive osseous abnormality. IMPRESSION: Normal CT appearance of the pancreas. No CT evidence pancreatitis. Dictated by: Clovis Ma M.D. on 01/13/2024 at 13:22 Approved by: Clovis Ma M.D. on 01/13/2024 at 13:25
== END ==
LOC: CT 09:49
PROVIDERS: PCP Registered Nurse; Referring Provider Registered Nurse; Visit Provider Registered Nurse
DX: R74.8 Abnormal levels of other serum enzymes (principal)
CPT/HCPCS: 74160; Q9967

== ENCOUNTER 2024-04-22 13:28 | Day surgery (SDC) | payer OTHER, MEDICAID, SELFPAY ==
[2023-11-20 16:57] VITALS: BMI 26.0
[2024-04-22 14:07] VITALS: BP 106/66; PULSE 66; RESP 16; TEMP 37; O2SAT 99
[2024-04-22] MEDS: LACTATED RINGERS 1,000 ML 42 ML IV (14:11)
--- NOTE | 2024-04-22 14:13 | P.HP_ITS ---
History of Present Illness History of Present Illness Date Patient Seen: 04/22/24 Time Patient Seen: 14:13 Chief complaint: Screening Colonoscopy Narrative: Lizz is a 58-year-old woman who is here for colonoscopy. She had a colonoscopy many years ago with polyps removed. Her mother had colon cancer in her 70s. [facility] Surgical History (Updated 04/22/24 @ 13:57 by Janet Cano RN) Hx of cholecystectomy Social History household members: significant other Smoking Status: Never smoker alcohol intake: never Meds Home Medications and Allergies Home Medications Medication Instructions Recorded Confirmed Type bupropion HCl 150 mg tablet,12 hr 150 mg PO BID 11/20/23 04/22/24 History sustained-release (Wellbutrin SR) peg 3350-electrolytes 236 240 ml PO Q10M #4,000 mL 03/15/24 Rx gram-22.74 gram-6.74 gram-5.86 gram solution (Golytely) naltrexone 50 mg tablet 50 mg PO DAILY 04/22/24 04/22/24 History Allergies Allergy/AdvReac Type Severity Reaction Status Date / Time No Known Drug Allergies Allergy Verified 11/20/23 13:17 Exam Vital Signs (past 8 hours): - 04/22/24 14:07 Temperature 98.6 F Pulse Rate 66 Respiratory Rate 16 Blood Pressure 106/66 Pulse Oximetry 99 Oxygen Delivery Method Room Air Oxygen Delivery Method Room Air Const General: No acute distress Resp Effort & Inspection: normal respiratory effort Assessment & Plan Assessment and plan (1) History of colon polyps: Status: Acute Plan We reviewed the risks and benefits of colonoscopy and she would like to proceed Time-Based Coding :: [TOTAL MINUTES] spent with patient and on the chart (including review of chart, obtaining history, exam, reviewing outside data, placing orders, documenting exam and treatment plan, and counseling patient) on [DATE].
--- NOTE | 2024-04-22 14:48 | PM.OP.COLON ---
Operative Date/Time/Diagnoses Date of procedure: 04/22/24 Time of procedure: 14:48 Pre-op diagnosis: Personal history of colon polyps and family history of colon cancer Post-op diagnosis: same Procedure & Clinicians Study performed: Colonoscopy Surgeon: Scott Casiano Procedure Notes Procedure in detail: Surgeon: Scott Casiano MD Anesthesia: Unique Randhawa DO Procedure: The patient was brought to the endoscopy suite, placed in left lateral decubitus position. The patient was connected to monitoring devices. A time-out was performed. Sedation was administered. Once the patient was adequately sedated, a digital rectal exam was performed and was normal. The scope was then inserted and advanced to the cecum where the appendiceal orifice was identified and photographed. The scope was then slowly withdrawn over greater than 6 minutes. The mucosa was thoroughly inspected. No abnormalities were found. The scope was retroflexed in the rectum. No abnormalities were seen. The scope was straightened and removed. The patient was awakened and brought to recovery. Scope withdrawal time: 10 minutes Sedation time: 15 minutes EBL: 0 Findings: Normal colon Post-procedure Recommendations: Colonoscopy in 5 years Disposition: PACU
[2024-04-22 14:52] VITALS: BP 97/61; PULSE 69; RESP 19; TEMP 36.2; O2SAT 97
[2024-04-22 14:57] VITALS: BP 95/61; PULSE 67; RESP 18; O2SAT 97
[2024-04-22 15:01] VITALS: BP 97/65; PULSE 65; RESP 17; O2SAT 97
[2024-04-22 15:07] VITALS: BP 95/63; PULSE 64; RESP 17; O2SAT 97
[2024-04-22 15:11] VITALS: BP 99/60; PULSE 66; RESP 15; TEMP 36.7; O2SAT 97
== END 2024-04-22 15:30 | disposition home or self-care (01) ==
PROVIDERS: PCP Registered Nurse; Referring Provider Surgery; Visit Provider Surgery
PROC: 0DJD8ZZ Inspection of Lower Intestinal Tract, Via Natural or Artificial Opening Endoscopic (ICD-10-PCS; CPT 45378; principal; 2024-04-22 14:15)
DX: Z12.11 Encounter for screening for malignant neoplasm of colon (principal); Z86.010 Personal history of colon polyps; Z80.0 Family history of malignant neoplasm of digestive organs
CPT/HCPCS: 45378; J2704

== ENCOUNTER → 2024-11-09 12:33 | Outpatient (CLI) | payer OTHER, SELFPAY ==
[2023-11-20 16:57] VITALS: BMI 26.0
--- NOTE | 2024-11-09 12:36 | DI.RAD.S_ITS ---
PROCEDURE: XR CHEST 2V INDICATIONS: POS TB TEST TECHNIQUE: 2 views of the chest were acquired. COMPARISON: [facility], , XR CHEST 1V, 11/20/2023, 13:26. FINDINGS: Heart, mediastinum and pulmonary vascular: Heart is normal in size and configuration. Mediastinum is unremarkable. Pulmonary vascular is normal. Lungs: Clear Pleural spaces: Normal-no effusions or pneumothorax. Bones and soft tissues: Normal IMPRESSION: Normal chest. Dictated by: Delon Coronado M.D. on 11/10/2024 at 10:48 Approved by: Delon Coronado M.D. on 11/10/2024 at 10:48
== END ==
PROVIDERS: PCP Registered Nurse; Referring Provider Registered Nurse; Visit Provider Registered Nurse
DX: R76.12 Nonspecific reaction to cell mediated immunity measurement of gamma interferon antigen response without active tuberculosis (principal)
CPT/HCPCS: 71046

== ENCOUNTER 2024-11-22 08:58 | Emergency (ER) | payer OTHER, SELFPAY ==
[2023-11-20 16:57] VITALS: BMI 26.0
[2024-11-22 09:04] VITALS: BP 133/75; PULSE 81; RESP 18; TEMP 36.8; O2SAT 98; BMI 30.4
--- NOTE | 2024-11-22 09:09 | DI.RAD.S_ITS ---
PROCEDURE: XR ELBOW LT MIN 3V INDICATIONS: pain/swelling/ fall TECHNIQUE: 3 views of the elbow were acquired. COMPARISON: None. FINDINGS: Bones: No fractures or dislocations. No suspicious bony lesions. Soft tissues: Small-moderate elbow joint effusion. No suspicious soft tissue calcifications. IMPRESSION: Small-moderate elbow joint effusion without a radiographically evident fracture. If there is persistent concern, consider a CT of the elbow without contrast for confirmation. Dictated by: Paolo Louis M.D. on 11/22/2024 at 10:27 Approved by: Paolo Louis M.D. on 11/22/2024 at 10:29
--- NOTE | 2024-11-22 11:29 | ED_ITS ---
HPI - Fall <Lindy Watson PA-C - Last Filed: 11/22/24 12:53> General Chief Complaint: Fall Stated Complaint: fall, head/hip/L elbow injury & pain Time Seen by Provider: 11/22/24 11:28 Source: patient Mode of arrival: Ambulatory History of Present Illness HPI Narrative: 59-year-old female presents to the ED status post a mechanical fall sustained just prior to arrival. Patient states that she slipped on some ice, falling backwards. Patient did strike the backside of her head, did not lose consciousness. Patient is not on blood thinners. Patient states that she has some soreness in her lower back, however it is the left elbow that is the most painful. Patient states she is unable to move her elbow without pain. No numbness, tingling, weakness. Related Data Home Medications Medication Instructions Recorded Confirmed bupropion HCl 150 mg tablet,12 hr 150 mg PO BID 11/20/23 04/22/24 sustained-release (Wellbutrin SR) naltrexone 50 mg tablet 50 mg PO DAILY 04/22/24 04/22/24 Previous Rx's Medication Instructions Recorded oxycodone-acetaminophen 5 mg-325 1 tab PO Q6H PRN pain 3 days #10 11/22/24 mg tablet (Percocet) tabs Allergies Allergy/AdvReac Type Severity Reaction Status Date / Time No Known Drug Allergies Allergy Verified 11/20/23 13:17 Review of Systems <Lindy Watson PA-C - Last Filed: 11/22/24 12:53> Constitutional Constitutional: Denies chills, Denies fatigue, Denies fever(s), Denies frequent falls, Denies lethargy and Denies weakness Eyes Eyes: Denies change in vision, Denies eye discharge, Denies irritation and Denies loss of vision ENT Ears, Nose, Mouth, and Throat: Denies change in voice, Denies dizziness, Denies neck pain, Denies sore throat and Denies throat swelling Cardiovascular Cardiovascular: Denies chest pain, Denies irregular heart rhythm, Denies lightheadedness, Denies palpitations, Denies dyspnea, Denies dyspnea on exertion and Denies orthopnea Respiratory Respiratory: Denies cough, Denies dyspnea, Denies dyspnea on exertion and Denies wheezing Gastrointestinal Gastrointestinal: Denies abdominal pain, Denies change in bowel habits, Denies diarrhea, Denies nausea and Denies vomiting Musculoskeletal Musculoskeletal: Denies neck pain and Denies numbness Comments: L elbow swelling, pain. Lower back feels sore. Integumentary/Breasts Skin/Breast: Denies pruritus, Denies erythema, Denies rash and Denies wounds Neurologic Neurologic: Denies behavioral changes, Denies confusion, Denies dizziness, Denies frequent falls, Denies loss of vision, Denies numbness and Denies weakness Psychiatric Psychiatric: Denies anxiety, Denies behavioral changes, Denies confusion, Denies depression, Denies homicidal ideation and Denies suicidal ideation Endocrine Endocrine: Denies fatigue, Denies flushing and Denies palpitations Hematologic/Lymphatic Hematologic/Lymphatic: Denies easy bruising Allergic/Immunologic Allergic/Immunologic: Denies urticaria, Denies throat swelling and Denies wheezing Patient History <Lindy Watson PA-C - Last Filed: 11/22/24 12:53> Surgical History Hx of cholecystectomy Social History household members: significant other Smoking Status: Never smoker alcohol intake: never Smoking Status: Never smoker alcohol intake frequency: 0-2 drinks per day Exam <Lindy Watson PA-C - Last Filed: 11/22/24 12:53> Narrative Exam Narrative: Const General:?cooperative, healthy appearing and comfortable [facility] Head:?normal to inspection Ears:?hearing grossly normal bilaterally Nose:?external nose normal Face and sinus:?normal facial exam and sinuses nontender Mouth:?oral mucosae normal Throat:?posterior oropharynx normal Eyes General:?appearance normal, both eyes and all related structures Neck Neck:?normal visual inspection and no lymphadenopathy noted Resp Effort & Inspection:?normal respiratory effort Auscultation:?clear to auscultation bilaterally Cardio Rate:?regular rate Rhythm:?regular rhythm Musculoskeletal There is swelling, tenderness to palpation of the left elbow. Range of motion is limited by pain. Strength and sensation is intact. Neurovascularly intact. Neuro General:?patient alert, patient awake and patient oriented x3 Initial Vital Signs Initial Vital Signs: Vital Signs Temperature 98.2 F 11/22/24 09:04 Pulse Rate 81 11/22/24 09:04 Respiratory Rate 18 11/22/24 09:04 Blood Pressure 133/75 11/22/24 09:04 Pulse Oximetry 98 11/22/24 09:04 Oxygen Delivery Method Room Air 11/22/24 09:04 <Emile Guerin MD - Last Filed: 11/22/24 21:53> Initial Vital Signs Initial Vital Signs: Vital Signs Temperature 98.2 F 11/22/24 09:04 Pulse Rate 81 11/22/24 09:04 Respiratory Rate 18 11/22/24 09:04 Blood Pressure 133/75 11/22/24 09:04 Pulse Oximetry 98 11/22/24 09:04 Oxygen Delivery Method Room Air 11/22/24 09:04 Course <Lindy Watson PA-C - Last Filed: 11/22/24 12:53> Orders Ordered: Discontinued Medications Ibuprofen (Ibuprofen 400 Mg Tablet) 800 mg PO NOW ONE Stop: 11/22/24 11:34 Last Admin: 11/22/24 12:05 Dose: 800 mg Documented By: SPF Vital Signs Vital signs: Vital Signs - 8 hr 11/22/24 09:04 11/22/24 12:11 Temperature 98.2 F Pulse Rate 81 Respiratory Rate 18 14 Blood Pressure 133/75 Pulse Oximetry 98 Oxygen Delivery Method Room Air <Emile Guerin MD - Last Filed: 11/22/24 21:53> Orders Ordered: Discontinued Medications Ibuprofen (Ibuprofen 400 Mg Tablet) 800 mg PO NOW ONE Stop: 11/22/24 11:34 Last Admin: 11/22/24 12:05 Dose: 800 mg Documented By: SPF Vital Signs Vital signs: Vital Signs - 8 hr 11/22/24 09:04 11/22/24 12:11 Temperature 98.2 F Pulse Rate 81 Respiratory Rate 18 14 Blood Pressure 133/75 Pulse Oximetry 98 Oxygen Delivery Method Room Air MDM - Fall <Lindy Watson PA-C - Last Filed: 11/22/24 12:53> MDM Narrative Medical decision making narrative: 59-year-old female presents to the ED status post a mechanical fall sustained just prior to arrival. Concern for fracture/dislocation versus musculoskeletal sprain/strain versus other. Physical exam is reassuring for no hematoma, skull depressions, lacerations of the head. No head/neck imaging indicated at this time. No midline tenderness to palpation. Left elbow is significantly swollen and painful. X-ray was obtained, which shows a small to moderate elbow joint effusion without a radiographically evident fracture. CT has been ordered to rule out fracture. Patient given ibuprofen. Will reassess. CT scan shows a small avulsion like calcification approximately 3 mm at the medial aspect of the olecranon. Small avulsion fracture can not be excluded. There is a mild effusion. Patient fitted with a splint and sling. Recommend ibuprofen, Tylenol for pain. Recommend follow-up with ortho as soon as possible. ED return precautions discussed with patient. Patient verbalized understanding. Medical records reviewed: Yes Discharge Plan Departure Patient Disposition: Home Clinical Impression: Elbow fracture, left Qualifiers: Encounter type: initial encounter Fracture type: closed Qualified Code(s): S42.402A - Unspecified fracture of lower end of left humerus, initial encounter for closed fracture Instructions: DI for Elbow Fracture, How to Prevent Falls Activity Restrictions/Additional Instructions: You were evaluated in the ED today for an elbow injury. Your CT scan shows a possible small avulsion fracture of the left elbow. You have been fitted with a splint and a sling to wear for the next 4-6 weeks to enable healing. Please also follow-up with [facility] at [phone]. You may take ibuprofen, Tylenol for pain. Return to the ED if you have worsening symptoms. Prescriptions: New oxycodone-acetaminophen [Percocet] 5-325 mg tablet 1 tab PO Q6H PRN (Reason: pain) 3 Days Qty: 10 0RF No Action bupropion HCl [Wellbutrin SR] 150 mg Tablet Sustained-Release 12 Hr 150 mg PO BID naltrexone 50 mg Tablet 50 mg PO DAILY Referrals: Diane Bryant ARNP [Primary Care Provider] - Stand Alone Forms: Patient Portal/API/Survey ED Sign-out <Emile Guerin MD - Last Filed: 11/22/24 21:53> Cosign ED Attending Cosignature Attestation: I was immediately available in the department for consultation. This documentation has been reviewed and I agree with assessment and plan. Supervised by Emile Guerin MD
--- NOTE | 2024-11-22 11:33 | DI.CT.S_ITS ---
PROCEDURE: CT UE LT WO CON INDICATIONS: Fall. Left elbow pain TECHNIQUE: Noncontrast 3 mm axial sections acquired of the left elbow , with coronal and sagittal reformats. COMPARISON: [facility], CR, XR ELBOW LT MIN 3V, 11/22/2024, 10:03. FINDINGS: Image quality: Artifact is present limiting evaluation. Bones: There is a small avulsion like calcification measuring approximately 3 mm along the medial aspect of the proximal olecranon. It is not well seen on all images secondary to artifact. Soft tissues: Mild effusion. IMPRESSION: Small avulsion like calcification approximately 3 mm at the medial aspect of the olecranon. Small avulsion fracture cannot be excluded. However, significant motion is present limiting evaluation. Dictated by: Sienna Rascon M.D. on 11/22/2024 at 12:11 Approved by: Sienna Rascon M.D. on 11/22/2024 at 12:20
[2024-11-22] MEDS: IBUPROFEN 400 MG TABLET 800 MG PO (12:05)
[2024-11-22 12:11] VITALS: RESP 14
[2024-11-22 13:40] VITALS: BP 128/81; PULSE 73; RESP 16; O2SAT 99
== END 2024-11-22 13:40 | disposition home or self-care (01) ==
PROVIDERS: Emergency Provider Student in an Organized Health Care Education/Training Program; PCP Registered Nurse
DX: S42.402A Unspecified fracture of lower end of left humerus, initial encounter for closed fracture (principal); M54.50 Low back pain, unspecified; W00.0XXA Fall on same level due to ice and snow, initial encounter
CPT/HCPCS: 29105; 73080; 73200; 99284

== ENCOUNTER 2024-11-27 18:20 | Emergency (ER) | payer OTHER, SELFPAY ==
[2023-11-20 16:57] VITALS: BMI 26.0
[2024-11-27 18:33] VITALS: BP 173/90; PULSE 89; RESP 16; TEMP 36.6; O2SAT 98; BMI 31.5
[2024-11-27 19:00] VITALS: BP 102/58; PULSE 79; RESP 16; O2SAT 99
[2024-11-27 19:30] VITALS: BP 109/56; PULSE 80; RESP 15; O2SAT 97
--- NOTE | 2024-11-27 19:31 | ED_ITS ---
HPI - Dizziness General Chief Complaint: Dizziness Stated Complaint: GLF t-5, Dizzyness, Headaches Time Seen by Provider: 11/27/24 19:00 Source: patient, RN notes reviewed and old records reviewed Mode of arrival: Ambulatory Limitations: no limitations History of Present Illness HPI Narrative: 59-year-old female no reported medical issues who had slip on ice hit her head and sustained small avulsion elbow fracture on CT on 11/22/2024. Patient states she felt a little bit off immediately afterwards but did not really have any headache or other symptoms besides her elbow pain and was seen but did not have any imaging at that time. Patient states since then she was developed headache she describes as sort of mild but increasing. She notes a little bit of photophobia. She was developed vertigo like symptoms with spinning particularly with movement. She was not had any vomiting but has had nausea. Notes worse with movement or ambulation. She denies any numbness tingling or weakness. No difficulty with speech. No chest pain or shortness of breath. No diarrhea or constipation, no urinary symptoms. No incontinence. Patient states her elbow still little bit painful but has not worsened. She denies any swelling or other changes to her extremity. Has had vertigo symptoms once before in the past was told it was something with her ear. She does not take any daily medications, no anticoagulants. Patient states she has had a prior gastric sleeve. No known drug allergies. No regular tobacco, alcohol or recreational drugs. She was tried ibuprofen at home for the headaches did take a dose of narcotic pain medication yesterday but did not like the way it makes her feel. She was accompanied by her . Related Data Home Medications Medication Instructions Recorded Confirmed bupropion HCl 150 mg tablet,12 hr 150 mg PO BID 11/20/23 04/22/24 sustained-release (Wellbutrin SR) naltrexone 50 mg tablet 50 mg PO DAILY 04/22/24 04/22/24 Previous Rx's Medication Instructions Recorded meclizine 25 mg chewable tablet See Rx Instructions .Route 11/27/24 .COMPLEX PRN dizziness #20 tabs ondansetron 4 mg disintegrating 4 mg PO Q6H PRN nausea and 11/27/24 tablet vomiting #14 tabs Allergies Allergy/AdvReac Type Severity Reaction Status Date / Time No Known Drug Allergies Allergy Verified 11/27/24 18:37 Review of Systems Review of Systems ROS Unobtainable: All systems reviewed & are unremarkable except as noted in HPI and below Patient History Surgical History Hx of cholecystectomy Social History household members: significant other Smoking Status: Never smoker alcohol intake: never Smoking Status: Never smoker alcohol intake frequency: 0-2 drinks per day Exam Narrative Exam Narrative: GEN: well nourished, well appearing female, alert and oriented x 3, patient appears to be in mild distress. HEENT: Atraumatic, pupils are equal round reactive to light, extraocular movements are intact, no nystagmus, nares are clear, TMs are clear with no fluid, there is no conjunctival pallor. Throat is clear without any exudates, erythema, tonsillar enlargement or uvular deviation, no facial droop HEART: Regular rate and rhythm without murmur, clicks, rubs. Pulses are equal in upper and lower extremities LUNGS:Lungs clear to auscultation, no wheezes, rales, crackles, chest moves symmetrically ABD:bowel sounds normal, soft, non-tender, no guarding, rebound, rigidity, no masses noted, no hepatosplenomegaly :No CVA tenderness MSCL: Non-tender, no muscle atrophy, muscles strength 5/5 upper and lower extremities, full range of motion, although left arm is in a long-arm splint. Patient has 2+ pulses. No swelling, ecchymosis or other changes. NEURO:CN 2-12 intact, sensation normal, finger nose finger test normal, heel oviedo test normal. Initial Vital Signs Initial Vital Signs: Vital Signs Temperature 97.9 F 11/27/24 18:33 Pulse Rate 89 11/27/24 18:33 Respiratory Rate 16 11/27/24 18:33 Blood Pressure 173/90 H 11/27/24 18:33 Pulse Oximetry 98 11/27/24 18:33 Oxygen Delivery Method Room Air 11/27/24 18:33 Scores GCS Dewey coma scale eye opening: Spontaneous Dewey coma scale verbal response: Orientated Dewey coma scale motor response: Obey commands [place] coma scale total score: 15 Nexus Score for C-Spine Focal Neurologic deficit present: No Midline spinal tenderness present: No Altered level of conciousness present: No Intoxication present: No Distracting Injury Present: No Nexus Criteria for C-spine: 0 Course Orders Ordered: Discontinued Medications Acetaminophen (Acetaminophen 325 Mg Tablet) 975 mg PO NOW ONE Stop: 11/27/24 19:42 Last Admin: 11/27/24 19:47 Dose: 975 mg Documented By: Meclizine HCl (Meclizine Hcl 12.5 Mg Tablet) 50 mg PO NOW ONE Stop: 11/27/24 19:42 Last Admin: 11/27/24 19:46 Dose: 50 mg Documented By: Ondansetron HCl (Ondansetron 4 Mg Odt) 4 mg SL NOW ONE Stop: 11/27/24 19:42 Last Admin: 11/27/24 19:47 Dose: 4 mg Documented By: Vital Signs Vital signs: Vital Signs - 8 hr 11/27/24 18:33 Temperature 97.9 F Pulse Rate 89 Respiratory Rate 16 Blood Pressure 173/90 H Pulse Oximetry 98 Oxygen Delivery Method Room Air MDM - Dizziness MDM Narrative Medical decision making narrative: 59-year-old female healthy no anticoagulants who had a mechanical ground level fall slipping on ice and hitting her head on asphalt 5 days ago. Initially had minimal symptoms other than her left elbow which has an avulsion fracture and has been splinted and treated. But has not increasing headaches, vertigo symptoms and photophobia since. She describes them as [id number]. Patient has had 1 prior episode of vertigo but was told it was related to her inner ear. On exam patient does not have any other acute neurologic changes but with her recent head injury would order head CT to rule out bleed. She was no neck or cervical symptoms not felt to require CT cervical spine. head CT shows no acute change. Patient was given Zofran, meclizine and acetaminophen orally for symptoms. On recheck patient is feeling improved with the medications. Reviewed her findings from today, return precautions, need for follow up. We will also give a work note and discussed may increase activity as tolerated. 59-year-old female with headache, vertigo some photophobia after striking her head started within a day or so of her injury she did feel a little bit off. But she was mostly focused on her left elbow which did have an avulsion fracture. Patient is neurologically intact, head CT was obtained to rule out intracranial bleed or fracture none is appreciated. Suspect concussive symptoms versus vertigo patient is felt appropriate for discharge home but we will be of prescribed medication for symptoms with return precautions. Discharge Plan Departure Patient Disposition: Home Clinical Impression: Vertigo, Concussion Instructions: DI for Concussion, DI for Vertigo Activity Restrictions/Additional Instructions: Please follow up with ENT or primary care if your symptoms are persisting. Your vertigo could be secondary to concussion there are many alternative causes of vertigo but with your recent head injury this would be my main suspicion. You can continue with the acetaminophen and/or ibuprofen as needed for headaches If it is helpful you can take meclizine 1-2 tablets every 6 hours as needed for vertigo symptoms. This is also available [id number] as Bonivert. You can take Zofran 1 tablet every 6 hours as needed for nausea. Make sure you are hydrating regularly. Prescription for meclizine and Zofran was sent to [facility] in [place] If you develop rapidly worsening headaches, fevers, new numbness, tingling or weakness, persistent vomiting, lightheadedness or passing out, difficulty with movement, speech or other new or concerning changes please return for evaluation. Prescriptions: New ondansetron 4 mg tablet,disintegrating 4 mg PO Q6H PRN (Reason: nausea and vomiting) Qty: 14 0RF meclizine 25 mg tablet,chewable See Rx Instructions .ROUTE .COMPLEX PRN (Reason: dizziness) Qty: 20 0RF Rx Instructions: You can take 1-2 tablets p.o. q.6 hours PRN dizziness or vertigo symptoms No Action bupropion HCl [Wellbutrin SR] 150 mg Tablet Sustained-Release 12 Hr 150 mg PO BID naltrexone 50 mg Tablet 50 mg PO DAILY Referrals: Brian Bobby MD [Physician] - Diane Bryant ARNP [Primary Care Provider] - Stand Alone Forms: Patient Portal/API/Survey, Work Release Note
--- NOTE | 2024-11-27 19:41 | DI.CT.S_ITS ---
PROCEDURE: CT HEAD/BRAIN WO CON INDICATIONS: mcknight, vertigo after fall/hit head 11/22/24 TECHNIQUE: Noncontrast 4.5 mm thick angled axial sections acquired from the foramen magnum to the vertex, with coronal and sagittal reformats. For radiation dose reduction, the following was used: automated exposure control, adjustment of mA and/or kV according to patient size. COMPARISON: [facility], CT, CT HEAD/BRAIN WO CON, 12/15/2022, 5:51. FINDINGS: Image quality: Diagnostic. CSF spaces: Basal cisterns are patent. No extra-axial fluid collections. Ventricles are normal in size and shape. Brain: No midline shift. No intracranial masses or hemorrhage. Power-white matter interface is normal. Skull and face: Calvarium and visualized facial bones are intact, without suspicious lesions. Sinuses: Visualized sinuses and mastoids are clear. IMPRESSION: 1. No CT evidence of acute intracranial trauma. 2. No significant soft tissue injury or underlying fracture. Dictated by: Amelia Velez M.D. on 11/27/2024 at 20:17 Approved by: Amelia Velez M.D. on 11/27/2024 at 20:19
[2024-11-27] MEDS: MECLIZINE HCL 12.5 MG TABLET 50 MG PO (19:46)
[2024-11-27] MEDS: ACETAMINOPHEN 325 MG TABLET 975 MG PO (19:47)
[2024-11-27] MEDS: ONDANSETRON 4 MG ODT SL (19:47)
--- NOTE | 2024-11-27 19:57 | PC.NURSE ---
Pt to imaging via wheel chair with refrigeration tech
[2024-11-27 20:55] VITALS: BP 118/73; PULSE 77; RESP 16; O2SAT 97
== END 2024-11-27 21:04 | disposition home or self-care (01) ==
PROVIDERS: Emergency Provider Emergency Medicine; PCP Registered Nurse
DX: S06.0X0A Concussion without loss of consciousness, initial encounter (principal); R42 Dizziness and giddiness
CPT/HCPCS: 70450; 99283

== ENCOUNTER → 2025-01-22 09:18 | Outpatient (CLI) | payer OTHER, SELFPAY ==
[2023-11-20 16:57] VITALS: BMI 26.0
--- NOTE | 2025-01-22 09:20 | DI.MG.S_ITS ---
MM screening mammo BI: 01/22/2025. BI-RADS: 1 CLINICAL: 59-year old female for bilateral screening mammogram. Tyrer-Cuzick lifetime risk of 5.3%. No personal or first-degree family history of breast cancer. PRIOR EXAMS Outside priors 12/13/2020, 12/25/2018, and 12/13/2016. MAMMOGRAPHY TECHNIQUE: 2D and 3D (tomosynthesis) digital mammographic views obtained, with additional images as needed for full coverage. Current study was also evaluated with a Computer Aided Detection (CAD) system. DENSITY B. There are scattered areas of fibroglandular density. MAMMOGRAPHY FINDINGS Bilateral: No suspicious mass, asymmetry, microcalcification, or other abnormality seen. No significant change from comparison. IMPRESSION: * No evidence of malignancy. RECOMMENDATIONS Bilateral * Annual screening mammography. OVERALL ASSESSMENT CATEGORY BI-RADS-1: Negative. [employer] recommends annual screening mammography beginning at age 40 for women with average risk of breast cancer. ELECTRONICALLY SIGNED: Loren Payan M.D. on 01/24/2025 at 12:09:48 PM PT Interpreting Station ID: [id number]
== END ==
LOC: MAMMO 09:19
PROVIDERS: PCP Registered Nurse; Referring Provider Registered Nurse; Visit Provider Registered Nurse
DX: Z12.31 Encounter for screening mammogram for malignant neoplasm of breast (principal)
CPT/HCPCS: 77063; 77067